=== PATIENT | male | born 1960 | race Caucasian/White ===

== ENCOUNTER 2018-01-25 19:08 | Emergency (ER) | payer OTHER ==
[2018-01-25] MEDS ORDERED: NA CHLORIDE 0.9% 1,000 ML ONE (19:54)
[2018-01-25] MEDS ORDERED: MORPHINE 4 MG/ML SYR ONE ×2 (20:41→20:54)
[2018-01-25] MEDS ORDERED: ONDANSETRON 4 MG/2 ML VIAL ONE ×2 (20:41→20:54)
[2018-01-25 20:42] LABS: Urine Blood 1+ (NEG); Urine Glucose 2+ (NEG); Urine Protein 2+ (NEG)
[2018-01-25 20:46] LABS: Albumin 2.5 g/dL (3.4-5.0); Bilirubin Direct 0.1 mg/dL (0-0.2); Bilirubin Total 0.7 mg/dL (0.2-1.0); Potassium 3.7 mmol/L (3.5-5.1); Protein, Total 7.9 g/dL (6.4-8.2)
[2018-01-25 20:49] LABS: Absolute Lymphocytes (CBC) 3.2 K/uL (0.7-4.9); Absolute Monocytes 0.8 K/uL (0.1-1.3); Absolute Neutrophil 9.5 K/uL (1.8-8.0); Basophils % 0.5 % (0-1.3); Eosinophils % 1.1 % (0-4.4); Hematocrit 41.3 % (39.6-49.0); Lymphocytes % 23.2 % (15.3-44.8); MCV 81.5 fL (80-100); MPV 11.9 fL (7.6-11.3); Monocytes % 5.7 % (3.3-12.3); RBC Red Blood Cell Count 5.07 M/uL (4.33-5.43)
[2018-01-25 20:51] LABS: Urine Bacteria <20 /HPF (NONE SEEN); Urine Culture Reflex Order NOT NEEDED
[2018-01-25] MEDS ORDERED: INSULIN -REGULAR HUMAN 50 UNIT/0.5 ML ML ONE (21:33)
--- NOTE | 2018-01-25 22:12 | RAD REPORT ---
EXAM DESCRIPTION: CT - Abdomen Pelvis W Contrast - 01/25/2018 9:48 pm CLINICAL HISTORY: Right-sided abdominal pain, right flank pain COMPARISON: None. TECHNIQUE: Biphasic, helical CT imaging of the abdomen and pelvis was performed following 100 ml non -ionic IV contrast. Oral contrast was given. All CT scans are performed using dose optimization technique as appropriate and may include automated exposure control or mA/KV adjustment according to patient size. FINDINGS: Scarring and atelectasis changes present in the posterior gutters. Infiltrate is unlikely. There is a 10 mm pleural abutting nodule lower left lung field. Multiple old rib fractures are noted on the left. No pericardial effusion. The liver, spleen, and pancreas show no suspicious findings. Cholecystectomy clips are present. No bi liary tree dilatation. Symmetric renal function is seen with no hydronephrosis or suspicious renal mass. No pyelonephritis o r acute renal parenchymal process. No urinary bladder abnormality. No gastric dilatation or gastric wall thickening. No acute small bowel finding. There is no appendici tis. Moderate stool volume is seen throughout the colon. In the right pericolic gutter adjacent to th e ascending colon there is edematous/inflammatory stranding present. This extends superiorly to abut the inferior margin of the liver. The colon wall mass or significant wall thickening not identified. Patient has no diverticulosis. No free air, free fluid or abscess. Oral contrast has not reached thi s portion of the colon. Remainder the colon is otherwise unremarkable. No mass or bulky lymphadenopathy. Fat filled left inguinal hernia present. No adrenal abnormality. Disc and bony degenerative changes are present. Postsurgical changes noted as well. Stimulator or carolin n infusion pump is seen in the subcutaneous fatty tissues right flank. No acute finding in the subcut aneous fat. IMPRESSION: Edematous/inflammatory stranding adjacent to the ascending colon in the pericolic gutter . There is no colon wall thickening or mass. No abscess, free air or surgically emergent finding. No other abnormality to explain the patient's ri ght flank symptoms. Right-sided pericolic gutter findings may reflect a mild colitis or epiploic appendagitis. Atelectasis changes in the right gutter. Approximately 10 millimeter pleural abutting nodule lower left lung field is only partially imaged. N o comparison to establish long-term stability. If patient has risk factors a follow-up outpatient CT study could be performed for full characterization of the nodule in the remaining lung parenchyma.
[2018-01-25] MEDS ORDERED: metroNIDAZOLE 500 MG TABLET ONE (22:30)
[2018-01-25] MEDS ORDERED: CIPROFLOXACIN HCL 500 MG TAB ONE (22:31)
--- NOTE | 2018-01-25 22:31 | EDPHYS ---
Physician Documentation [facility] Name: Ismael Harris Jr Age: 57 yrs Sex: Male : 1960 Arrival Date: 01/25/2018 Time: 19:10 Bed 30 Private MD: Out, [facility] ED Physician Sandeep Walters HPI: 01/25 19:48 This 57 yrs old Male presents to ER via Wheelchair with complaints of SIDE pkl PAIN. 19:48 The patient presents with abdominal pain in the right upper quadrant, right lower pkl quadrant. Onset: The symptoms/episode began/occurred 5 day(s) ago. The symptoms do not radiate. Associated signs and symptoms: none. Historical: - Allergies: 19:45 No Known Allergies; tl3 - Home Meds: 19:45 amitriptyline 50 mg Oral tab [Active]; amlodipine 10 mg tab [Active]; aspirin 81 mg tl3 Oral TbEC [Active]; atorvastatin 40 mg Oral tab [Active]; buspirone 5 mg Oral tab [Active]; carvedilol 25 mg Oral tab [Active]; clonazepam 1 mg Oral tab [Active]; furosemide 20 mg Oral tab [Active]; gabapentin 100 mg Oral cap [Active]; Novolin R Sub-Q [Active]; hydrocodone-acetaminophen 10-325 mg oral tab [Active]; Lantus 100 unit/mL Sub-Q soln [Active]; levothyroxine oral [Active]; pantoprazole 40 mg Oral TbEC [Active]; saxagliptin 5mg Oral [Active]; paroxetine HCl 40 mg Oral tab [Active]; - PMHx: 19:45 BKA (LEFT); BKA (RIGHT); Chronic pain; Diabetes - IDDM; ESRD; Gastroparesis; tl3 osteomyelitis; Sleep Apnea; - Immunization history:: Adult Immunizations up to date. - Social history:: Smoking status: unknown. - Ebola Screening: : No symptoms or risks identified at this time. ROS: 19:48 Eyes: Negative for injury, pain, redness, and discharge, ENT: Negative for injury, pkl pain, and discharge, Neck: Negative for injury, pain, and swelling, Cardiovascular: Negative for chest pain, palpitations, and edema, Respiratory: Negative for shortness of breath, cough, wheezing, and pleuritic chest pain. 19:48 Abdomen/GI: Positive for abdominal pain, of the right upper quadrant and right lower quadrant. 19:48 Back: Negative for acute changes. 19:48 : Negative for urinary symptoms. 19:48 MS/extremity: Negative for acute changes. 19:48 Skin: Negative for rash. 19:48 Neuro: Negative for altered mental status. Exam: 19:48 Head/Face: Normocephalic, atraumatic. Eyes: Pupils equal round and reactive to light, pkl extra-ocular motions intact. Lids and lashes normal. Conjunctiva and sclera are non-icteric and not injected. Cornea within normal limits. Periorbital areas with no swelling, redness, or edema. ENT: Nares patent. No nasal discharge, no septal abnormalities noted. Tympanic membranes are normal and external auditory canals are clear. Oropharynx with no redness, swelling, or masses, exudates, or evidence of obstruction, uvula midline. Mucous membranes moist. Neck: Trachea midline, no thyromegaly or masses palpated, and no cervical lymphadenopathy. Supple, full range of motion without nuchal rigidity, or vertebral point tenderness. No Meningismus. Chest/axilla: Normal chest wall appearance and motion. Nontender with no deformity. No lesions are appreciated. Cardiovascular: Regular rate and rhythm with a normal S1 and S2. No gallops, murmurs, or rubs. Normal PMI, no JVD. No pulse deficits. Respiratory: Lungs have equal breath sounds bilaterally, clear to auscultation and percussion. No rales, rhonchi or wheezes noted. No increased work of breathing, no retractions or nasal flaring. 19:48 Abdomen/GI: Bowel sounds: normal, Palpation: soft, mild abdominal tenderness, in the right upper quadrant and right lower quadrant. 19:48 Back: Exam negative for acute changes. 19:48 : Exam negative for acute changes. 19:48 Musculoskeletal/extremity: Exam is negative for acute changes. 19:48 Skin: Exam negative for rash. 19:48 Neuro: Orientation: is normal, Mentation: is normal, Cranial nerves: grossly normal, Motor: is normal. Vital Signs: 19:45 BP 164 / 76; Pulse 79; Resp 18; Temp 98.4; Pulse Ox 95% on R/A; tl3 20:18 BP 142 / 100; Pulse 82; Resp 18; Pulse Ox 96% on R/A; tl3 21:22 BP 157 / 80; Pulse 74; Resp 18; Pulse Ox 94% on R/A; tl3 21:35 BP 114 / 103; Pulse 80; Resp 16; Pulse Ox 94% ; tl3 22:08 Pulse 83; Resp 18; Pulse Ox 95% ; tl3 22:19 BP 136 / 77; tl3 22:51 BP 162 / 89; Pulse 84; Resp 18; Pulse Ox 95% on R/A; tl3 MDM: 19:23 Patient medically screened. pkl 22:26 Data reviewed: vital signs, nurses notes, lab test result(s), radiologic studies, CT pkl scan. ED course: Discussed CT Scan findings. Possible colitis. 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 Advised to follow up with him in 1 to 2 days. Patient understood instruction. 01/25 19:47 Order name: Amylase, Serum; Complete Time: 20:57 pkl 01/25 19:47 Order name: Basic Metabolic Panel; Complete Time: 20:57 pkl 01/25 19:47 Order name: CBC with Diff; Complete Time: 20:57 pkl 01/25 19:47 Order name: Creatinine for Radiology; Complete Time: 20:57 pkl 01/25 19:47 Order name: Hepatic Function; Complete Time: 20:57 pkl 01/25 19:47 Order name: Lipase; Complete Time: 20:57 pkl 01/25 19:47 Order name: Urine Microscopic Only; Complete Time: 20:57 pkl 01/25 19:47 Order name: CT Abd/Pelvis - W/Contrast; Complete Time: 22:20 pkl 01/25 20:32 Order name: Urine Dipstick--Ancillary (enter results); Complete Time: 20:57 ne 01/25 19:47 Order name: IV Saline Lock; Complete Time: 20:22 pkl 01/25 19:47 Order name: Labs collected and sent; Complete Time: 20:22 pkl 01/25 19:47 Order name: Urine Dipstick-Ancillary (obtain specimen); Complete Time: 21:35 pkl 01/25 21:19 Order name: Accucheck; Complete Time: 21:25 mg2 Administered Medications: 20:21 Drug: NS 0.9% 1000 ml Route: IV; Rate: 125 ml/hr; Site: left forearm; Delivery: Primary tl3 tubing; 22:52 Follow up: IV Status: Completed infusion; IV Intake: 500ml tl3 20:58 Drug: morphine 2 mg Route: IVP; Site: left forearm; mg2 21:34 Follow up: Response: No adverse reaction; Pain is decreased tl3 20:58 Drug: Zofran 4 mg Route: IVP; Site: left forearm; mg2 21:34 Follow up: Response: No adverse reaction tl3 21:34 Drug: Insulin Regular Human 10 units {Co-Signature: mg2 (Jay Griffiths RN).} Route: tl3 IVP; Site: left forearm; 22:52 Follow up: Response: Blood sugar is lowered tl3 22:34 Drug: Flagyl 500 mg Route: PO; tl3 22:52 Follow up: Response: No adverse reaction tl3 22:37 Drug: Ciprofloxacin 500 mg Route: PO; tl3 22:52 Follow up: Response: No adverse reaction tl3 Point of Care Testing: Blood Glucose: 22:08 Blood Glucose: 282 mg/dL; tl3 Ranges: Critical Glucose Levels:Adult <50 mg/dl or >400 mg/dl <40 mg/dl or >180 mg/dl Disposition: 01/25/18 22:30 Discharged to Home. Impression: Abdominal pain. Possible colitis. - Condition is Stable. - Prescriptions for Flagyl 500 mg Oral Tablet - take 1 tablet by ORAL route every 8 hours for 10 days; 30 tablet. Ultram 50 mg Oral Tablet - take 1 tablet by ORAL route every 6 hours As needed; 20 tablet. Cipro 500 mg Oral Tablet - take 1 tablet by ORAL route every 12 hours for 7 days; 14 tablet. - Medication Reconciliation Form, Thank You Letter, Antibiotic Education, Prescription Opioid Use form. - Follow up: Private Physician; When: 1 - 2 days; Reason: Re-evaluation by your physician. - Problem is new. - Symptoms have improved. Signatures: Dispatcher [employer] Sandeep James MD MD pkl Lowrey, Tammy RN RN tl3 Jay Griffiths RN RN mg2 Jay Griffiths RN mg2 Corrections: (The following items were deleted from the chart) 22:59 22:30 01/25/2018 22:30 Discharged to Home. Impression: Abdominal pain. Possible tl3 colitis. Condition is Stable. Forms are Medication Reconciliation Form, Thank You Letter, Antibiotic Education, Prescription Opioid Use. Follow up: Private Physician; When: 1 - 2 days; Reason: Re-evaluation by your physician. Problem is new. Symptoms have improved. pkl
--- NOTE | 2018-01-25 22:31 | ER ---
Nurse's Notes [facility] Name: Ismael Harris Jr Age: 57 yrs Sex: Male : 1960 Arrival Date: 01/25/2018 Time: 19:10 Bed 30 Private MD: Out, [facility] Diagnosis: Abdominal pain. Possible colitis Presentation: 01/25 19:39 Presenting complaint: Patient states: right sided pain that has persisted for over one tl3 week, burning and stabbing pain. Transition of care: patient was not received from another setting of care. Onset of symptoms was January 18, 2018. Risk Assessment: Do you want to hurt yourself or someone else? Patient reports no desire to harm self or others. Initial Sepsis Screen: Does the patient meet any 2 criteria? No. Patient's initial sepsis screen is negative. Does the patient have a suspected source of infection? No. Patient's initial sepsis screen is negative. Care prior to arrival: Medication(s) given: has implanted pain pump with dilaudid. 19:39 Method Of Arrival: Wheelchair tl3 19:39 Acuity: SURESH 3 tl3 Triage Assessment: 19:45 General: Appears uncomfortable, well groomed, well developed, well nourished. Pain: tl3 Complains of pain in right lower quadrant and right upper quadrant Pain currently is 10 out of 10 on a pain scale. EENT: No signs and/or symptoms were reported regarding the EENT system. Neuro: Level of Consciousness is awake, alert, obeys commands, Oriented to person, place, time, situation, Appropriate for age. Cardiovascular: Heart tones S1 S2 present. Respiratory: Airway is patent Respiratory effort is even, unlabored, Respiratory pattern is regular, symmetrical. GI: Abdomen is round distended. : No signs and/or symptoms were reported regarding the genitourinary system. Derm: No signs and/or symptoms reported regarding the dermatologic system. Musculoskeletal: No signs and/or symptoms reported regarding the musculoskeletal system. 22:58 General: Behavior is calm, cooperative, appropriate for age. tl3 Historical: - Allergies: 19:45 No Known Allergies; tl3 - Home Meds: 19:45 amitriptyline 50 mg Oral tab [Active]; amlodipine 10 mg tab [Active]; aspirin 81 mg tl3 Oral TbEC [Active]; atorvastatin 40 mg Oral tab [Active]; buspirone 5 mg Oral tab [Active]; carvedilol 25 mg Oral tab [Active]; clonazepam 1 mg Oral tab [Active]; furosemide 20 mg Oral tab [Active]; gabapentin 100 mg Oral cap [Active]; Novolin R Sub-Q [Active]; hydrocodone-acetaminophen 10-325 mg oral tab [Active]; Lantus 100 unit/mL Sub-Q soln [Active]; levothyroxine oral [Active]; pantoprazole 40 mg Oral TbEC [Active]; saxagliptin 5mg Oral [Active]; paroxetine HCl 40 mg Oral tab [Active]; - PMHx: 19:45 BKA (LEFT); BKA (RIGHT); Chronic pain; Diabetes - IDDM; ESRD; Gastroparesis; tl3 osteomyelitis; Sleep Apnea; - Immunization history:: Adult Immunizations up to date. - Social history:: Smoking status: unknown. - Ebola Screening: : No symptoms or risks identified at this time. Screenin:18 Abuse screen: Denies threats or abuse. Nutritional screening: No deficits noted. tl3 Tuberculosis screening: No symptoms or risk factors identified. Fall Risk None identified. Assessment: 20:18 Reassessment: No changes from previously documented assessment. Patient is alert, tl3 oriented x 3, equal unlabored respirations, skin warm/dry/pink. 20:48 Reassessment: critical lab result for Glucose 500 mg/dl relayed to provider. mg2 21:22 Reassessment: No changes from previously documented assessment. Patient and/or family tl3 updated on plan of care and expected duration. Pain level reassessed. Patient is alert, oriented x 3, equal unlabored respirations, skin warm/dry/pink. pt moved from chair to bed, pillow offered for comfort. 22:51 Reassessment: Patient appears in no apparent distress at this time. No changes from tl3 previously documented assessment. Patient and/or family updated on plan of care and expected duration. Pain level reassessed. Patient is alert, oriented x 3, equal unlabored respirations, skin warm/dry/pink. Vital Signs: 19:45 BP 164 / 76; Pulse 79; Resp 18; Temp 98.4; Pulse Ox 95% on R/A; tl3 20:18 BP 142 / 100; Pulse 82; Resp 18; Pulse Ox 96% on R/A; tl3 21:22 BP 157 / 80; Pulse 74; Resp 18; Pulse Ox 94% on R/A; tl3 21:35 BP 114 / 103; Pulse 80; Resp 16; Pulse Ox 94% ; tl3 22:08 Pulse 83; Resp 18; Pulse Ox 95% ; tl3 22:19 BP 136 / 77; tl3 22:51 BP 162 / 89; Pulse 84; Resp 18; Pulse Ox 95% on R/A; tl3 ED Course: 19:10 Patient arrived in ED. sb2 19:11 Out, of [facility] is Private Physician. sb2 19:23 Sandeep Walters MD is Attending Physician. pkl 19:24 Jamia Peter, OZZY is Primary Nurse. tl3 19:41 Triage completed. tl3 19:45 Arm band placed on left wrist. tl3 20:01 Oral contrast given. kw1 20:18 Patient has correct armband on for positive identification. Call light in reach. pt tl3 remains in wheel chair, does not want to get in bed, moving over would be too painful. Pulse ox on. NIBP on. 20:18 No provider procedures requiring assistance completed. Inserted saline lock: 20 gauge tl3 in left forearm, using aseptic technique. 20:[address] Scan, Awaiting: pt finished with oral contrast, CT notified. tl3 21:[address] via stretcher. tl3 21:47 CT completed. Patient tolerated procedure well. Patient moved back from CT. nj 21:48 CT Abd/Pelvis - W/Contrast In Process Unspecified. EDMS 22:51 IV discontinued, intact, bleeding controlled, No redness/swelling at site. Pressure tl3 dressing applied. Administered Medications: 20:21 Drug: NS 0.9% 1000 ml Route: IV; Rate: 125 ml/hr; Site: left forearm; Delivery: Primary tl3 tubing; 22:52 Follow up: IV Status: Completed infusion; IV Intake: 500ml tl3 20:58 Drug: morphine 2 mg Route: IVP; Site: left forearm; mg2 21:34 Follow up: Response: No adverse reaction; Pain is decreased tl3 20:58 Drug: Zofran 4 mg Route: IVP; Site: left forearm; mg2 21:34 Follow up: Response: No adverse reaction tl3 21:34 Drug: Insulin Regular Human 10 units {Co-Signature: mg2 (Jay Griffiths RN).} Route: tl3 IVP; Site: left forearm; 22:52 Follow up: Response: Blood sugar is lowered tl3 22:34 Drug: Flagyl 500 mg Route: PO; tl3 22:52 Follow up: Response: No adverse reaction tl3 22:37 Drug: Ciprofloxacin 500 mg Route: PO; tl3 22:52 Follow up: Response: No adverse reaction tl3 Point of Care Testing: Blood Glucose: 22:08 Blood Glucose: 282 mg/dL; tl3 Ranges: Intake: 22:52 IV: 500ml; Total: 500ml. tl3 Outcome: 22:30 Discharge ordered by . pkl 22:51 Discharged to home via wheelchair. tl3 22:51 Condition: stable 22:51 Discharge instructions given to patient, Instructed on discharge instructions, follow up and referral plans. medication usage, Demonstrated understanding of instructions, follow-up care, medications, Prescriptions given X 3. 22:59 Patient left the ED. tl3 Addendum: 01/29/2018 19:27 Addendum:. t l3 21:04 Addendum:. t l3 21:06 Addendum: Other at 2225 on 01/25/2018 Dr Walters gave a verbal order for 2 mg Morphine and 4 t l3 mg Zofran, medication was administered at 2230 pm. Signatures: Dispatcher [employer] Sandeep James MD MD pkJasson Goins Kimberly kw1 Romana Burk2 Jamia Peter RN RN tl3 Jay Griffiths RN RN mg2 Jay Griffiths RN mg2
[2018-01-25 23:02] VITALS: TEMP 98.4
[2018-01-25 23:07] VITALS: O2SAT 95
[2018-01-25 23:08] VITALS: BP 162/89
== END 2018-01-25 22:59 | disposition home or self-care (01) ==
LOC: ER 19:08
DX: R10.9 Unspecified abdominal pain (principal); E11.22 Type 2 diabetes mellitus with diabetic chronic kidney disease; N18.6 End stage renal disease; Z79.82 Long term (current) use of aspirin; Z79.4 Long term (current) use of insulin
CPT/HCPCS: 36415; 74177; 80048; 80076; 81003; 81015; 82150; 82962; 83690; 85025; 96361; 96374; 96375; 99284; J2405; J7030; Q9967